=== PATIENT | female | born 1995 | race Two or more races ===

== ENCOUNTER 2024-05-29 15:19 | Outpatient (CLI) | payer OTHER | END 2024-05-29 15:21 | disposition home or self-care (01) | LOC: PRENATAL 15:19 | PROVIDERS: ATTEND Obstetrics & Gynecology Maternal & Fetal Medicine | DX: O36.80X0 Pregnancy with inconclusive fetal viability, not applicable or unspecified (principal); Z36.82 Encounter for antenatal screening for nuchal translucency; O99.891 Other specified diseases and conditions complicating pregnancy; Z3A.13 13 weeks gestation of pregnancy ==

== ENCOUNTER 2024-07-17 09:38 | Outpatient (CLI) | payer OTHER | END 2024-07-17 09:39 | disposition home or self-care (01) | LOC: PRENATAL 09:38 | PROVIDERS: ATTEND Obstetrics & Gynecology Maternal & Fetal Medicine | DX: O44.00 Complete placenta previa NOS or without hemorrhage, unspecified trimester (principal); Z3A.20 20 weeks gestation of pregnancy ==

== ENCOUNTER 2024-10-09 11:51 | Outpatient (CLI) | payer OTHER | END 2024-10-09 11:52 | disposition home or self-care (01) | LOC: PRENATAL 11:51 | PROVIDERS: ATTEND Obstetrics & Gynecology Maternal & Fetal Medicine | DX: O26.849 Uterine size-date discrepancy, unspecified trimester (principal); O36.8199 Decreased fetal movements, unspecified trimester, other fetus; O99.891 Other specified diseases and conditions complicating pregnancy; Z3A.32 32 weeks gestation of pregnancy ==

== ENCOUNTER 2024-11-15 11:37 | Inpatient (IN) | payer OTHER ==
[2024-11-15] VITALS (7 sets, daily range): BP systolic 110–124; BP diastolic 54–78; O2SAT 98
[~2024-11-15] VITALS: Ht 144.8 cm; Wt 66.2 kg
[2024-11-15] MEDS ORDERED: PEPCID AC20 MG PO (11:53)
[2024-11-15] MEDS ORDERED: PRENATAL + DHA1 EAC1 PO (11:53)
[2024-11-15] MEDS ORDERED: METOPROLOL SUCC25 MG PO (11:53)
[2024-11-15] MEDS ORDERED: AMPICILLIN SODIUM 2,000 MG VIAL ONE (11:53)
[2024-11-15] MEDS ORDERED: AMPICILLIN SODIUM 2,000 MG VIAL IV ONE (12:00)
[2024-11-15] MEDS ORDERED: RINGERS SOLUTION,LACTATED 1,000 ML IV SCH (12:00)
[2024-11-15 12:51] LABS: HEMATOCRIT 40.2 % (36.0-45.00); MEAN CELL VOLUME 94.3 fL (80.00-100.00); MEAN CORPUSCULAR HEMOGLOBIN 32.8 pg (27.00-32.0); MEAN CORPUSCULAR HGB CONC 34.8 g/dl (32.0-36.0); PLATELET COUNT 345 K/uL (150-450); RED BLOOD COUNT 4.26 M/uL (4.00-6.00); RED CELL DISTRIBUTION WIDTH 13.2 % (11.5-14.5)
[2024-11-15 12:57] LABS: INR 0.94; PARTIAL THROMBOPLASTIN TIME 27.6 SECONDS (22.0-34.0); PROTHROMBIN TIME 10.3 SECONDS (9.0-11.5)
[2024-11-15 14:10] LABS: ALBUMIN 2.9 gm/dL (3.4-5.0); BILIRUBIN TOTAL 0.56 mg/dL (0.3-1.2); CALCIUM 9.5 mg/dL (8.5-10.1); CREATININE SERUM 0.4 mg/dL (0.55-1.02); GFR 188.71; GLOBULINA 3.7 G/DL (2.4-3.5); POTASSIUM 4.07 mEq/L (3.5-5.1); TOTAL PROTEIN 6.6 gm/dL (6.4-8.2)
[2024-11-15] MEDS ORDERED: OXYTOCIN 20 UNITS/500ML RL PIGGYBAG IV ONE (14:13)
[2024-11-15] MEDS ORDERED: OXYTOCIN 500 ML IV SCH (14:30)
[2024-11-15] MEDS ORDERED: MORPHINE SULFATE 4 MG/ML VIAL IV ONE (14:30)
[2024-11-15] MEDS ORDERED: AMPICILLIN SODIUM 1,000 MG VIAL IV SCH (16:00)
[2024-11-15] MEDS ORDERED: OXYTOCIN 20 UNITS/1000ML RL PIGGYBAG IV ONE (20:28)
[2024-11-15] MEDS ORDERED: LIDOCAINE HCL 1% 10ML VIAL ONE (20:28)
[2024-11-15] MEDS ORDERED: ERYTHROMYCIN BASE OPHT 1GM EACH TUBE OP ONE ×2 (20:28→22:15)
[2024-11-15] MEDS ORDERED: CHLORHEXIDINE GLUCONATE 120 ML BOTTLE TOP ONE (20:28)
[2024-11-15] MEDS ORDERED: KETOROLAC TROMETHAMINE 30 MG VIAL ONE (21:17)
[2024-11-15] MEDS ORDERED: IBUprofen 400 MG TABLET PO PRN (22:15)
[2024-11-15] MEDS ORDERED: OXYTOCIN 1,000 ML IV SCH (22:15)
[2024-11-15] MEDS ORDERED: CHLORHEXIDINE GLUCONATE 120 ML BOTTLE TOP SCH (22:15)
[2024-11-15] MEDS ORDERED: LIDOCAINE HCL 1% 10ML VIAL IJ ONE (22:15)
[2024-11-15] MEDS ORDERED: KETOROLAC TROMETHAMINE 30 MG VIAL IV ONE (22:30)
[2024-11-15] MEDS ORDERED: METOPROLOL TARTRATE 25 MG TABLET PO SCH (23:45)
[2024-11-15] MEDS ORDERED: FAMOtidine 20 MG TABLET PO STA (23:56)
[2024-11-16 00:01] VITALS: BP 120/67
[2024-11-16] MEDS ORDERED: FAMOtidine 20 MG TABLET PO ONE (00:01)
[2024-11-16 03:49] VITALS: BP 110/67
[2024-11-16 07:17] VITALS: BP 115/52
[2024-11-16 08:17] LABS: MEAN CELL VOLUME 94.2 fL (80.00-100.00); MEAN CORPUSCULAR HEMOGLOBIN 32.5 pg (27.00-32.0); MEAN CORPUSCULAR HGB CONC 34.5 g/dl (32.0-36.0); PLATELET COUNT 309 K/uL (150-450); RED BLOOD COUNT 3.39 M/uL (4.00-6.00); RED CELL DISTRIBUTION WIDTH 13.3 % (11.5-14.5)
[2024-11-16] MEDS ORDERED: PNV,CALCIUM 72/IRON/FOLIC ACID 1 TAB TABLET PO SCH (09:00)
[2024-11-16 12:30] VITALS: BP 123/74; O2SAT 98
[2024-11-16 15:16] VITALS: BP 124/59
[2024-11-16 16:40] VITALS: BP 111/73
[2024-11-16] MEDS ORDERED: METOPROLOL TARTRATE 25 MG TABLET PO SCH (17:00)
[2024-11-17] VITALS: BP 103/68
[2024-11-17 08:00] VITALS: BP 109/76
[2024-11-17 08:05] LABS: HEMATOCRIT 28.4 % (36.0-45.00); MEAN CELL VOLUME 94.8 fL (80.00-100.00); MEAN CORPUSCULAR HGB CONC 35.6 g/dl (32.0-36.0); PLATELET COUNT 276 K/uL (150-450); RED CELL DISTRIBUTION WIDTH 13.2 % (11.5-14.5)
[2024-11-17 08:16] LABS: HEMOGLOBIN 10.1 g/dL (12.0-15.00); MEAN CORPUSCULAR HEMOGLOBIN 33.6 pg (27.00-32.0)
== END 2024-11-17 15:09 | disposition home or self-care (01) | DRG 807 ==
LOC: LDR 11:37 → OB/GYN 11-16 14:00
PROVIDERS: Obstetrics & Gynecology; ADMIT Student in an Organized Health Care Education/Training Program; ATTEND Student in an Organized Health Care Education/Training Program
PROC: 10E0XZZ Delivery of Products of Conception, External Approach (ICD-10-PCS; principal; 2024-11-15)
PROC: 0KQM0ZZ Repair Perineum Muscle, Open Approach (ICD-10-PCS; 2024-11-15)
PROC: 0UQG7ZZ Repair Vagina, Via Natural or Artificial Opening (ICD-10-PCS; 2024-11-15)
PROC: 4A1HXCZ Monitoring of Products of Conception, Cardiac Rate, External Approach (ICD-10-PCS; 2024-11-15)
DX: O70.1 Second degree perineal laceration during delivery (principal); Z37.0 Single live birth; Z3A.37 37 weeks gestation of pregnancy